=== PATIENT | male | born 1995 | race African-American/Black ===

== ENCOUNTER 2019-06-28 14:05 | Emergency (ER) | payer OTHER ==
--- NOTE | 2019-06-28 14:43 | ED ---
Laceration/Wound HPI - HPI Summary HPI Summary: 24-year-old male presents to the emergency department for staple removal status post laceration while wrestling 8 days ago. Patient has no complaints at this time including fever, chest pain, abdominal pain, rash, pain with urination. Patient reports 0 out of 10 pain at the site of his laceration. There are no signs of secondary infection of the wound is healing properly. Patient has been doing daily wound cleaning. - History of Current Complaint Stated Complaint: NEEDS KASANDRA REMOVED PER PT Hx Obtained From: Patient Mechanism of Injury: Sharp/Blunt Trauma Onset/Duration: Lasting Days Pain Intensity: 0 Pain Scale Used: 0-10 Numeric - Allergy/Home Medications Allergies/Adverse Reactions: Allergies Allergy/AdvReac Type Severity Reaction Status Date / Time No Known Allergies Allergy Verified 06/28/19 14:12 PMH/Surg Hx/FS Hx/Imm Hx Cardiovascular History: Denies: Hx Pacemaker/ICD Sensory History: Denies: Hx Hearing Aid Psychiatric History: Denies: Hx Panic Disorder Infectious Disease History: No Infectious Disease History: Denies: Traveled Outside the [place] in Last 30 Days - Social History Alcohol Use: None Substance Use Type: Reports: None Smoking Status (MU): Never Smoked Tobacco Review of Systems Constitutional: Negative Eyes: Negative ENT: Negative Cardiovascular: Negative Respiratory: Negative Gastrointestinal: Negative Genitourinary: Negative Musculoskeletal: Negative Skin: Negative Neurological: Negative Psychological: Normal All Other Systems Reviewed And Are Negative: Yes Physical Exam - Summary Physical Exam Summary: Inspection reveals a well-healing 6 cm laceration to the posterior scalp. No evidence of secondary infection such as drainage or erythema. There are [address] at the superior margin of the wound and the other 4 kasandra which were originally placed have been removed prior to arrival. Triage Information Reviewed: Yes Vital Signs On Initial Exam: Initial Vitals Temp Pulse Resp BP Pulse Ox 98.6 F 65 16 138/83 100 06/28/19 14:07 06/28/19 14:07 06/28/19 14:07 06/28/19 14:07 06/28/19 14:07 Vital Signs Reviewed: Yes Appearance: Positive: Well-Appearing, No Pain Distress, Well-Nourished Skin: Positive: Warm, Skin Color Reflects Adequate Perfusion Eyes: Positive: EOMI, STACI ENT: Positive: Hearing grossly normal Respiratory/Lung Sounds: Positive: Clear to Auscultation, Breath Sounds Present Cardiovascular: Positive: RRR, S1, S2 Musculoskeletal: Positive: Strength/ROM Intact Neurological: Positive: Sensory/Motor Intact, Alert, Oriented to Person Place, Time, Normal Gait, Speech Normal Psychiatric: Positive: Normal AVPU Assessment: Alert Procedures - Sedation Patient Received Moderate/Deep Sedation with Procedure: No Diagnostics - Vital Signs Vital Signs Temp Pulse Resp BP Pulse Ox 06/28/19 14:07 98.6 F 65 16 138/83 100 - Laboratory Lab Statement: Any lab studies that have been ordered have been reviewed, and results considered in the medical decision making process. Laceration Repair Course/Dx - Course Course Of Treatment: Patient was evaluated in the emergency department today for staple removal status post laceration 8 days ago. 4 the previous 6 kasandra removed prior to arrival. The remaining 2 kasandra were removed with significant difficulty as they were misshapen due to improper removal techniques prior to arrival. The kasandra were removed and the patient's wound remained well approximated. Patient is to continue daily wound care. - Differential Dx Differental Diagnoses: Laceration - Clinical Impression Provider Diagnoses: Removal of staple Discharge ED - Sign-Out/Discharge Documenting (check all that apply): Patient Departure - Discharge Plan Condition: Stable Disposition: HOME Patient Education Materials: Acute Wound Care (ED) Additional Instructions: You were seen in the emergency department today and had 2 kasandra removed. Please continue your daily wound care and follow-up with your primary care provider if you develop any new or worsening symptoms. Please return to the emergency department if you develop fever or purulent drainage from your wound. - Billing Disposition and Condition Condition: STABLE Disposition: Home
[2019-06-28 15:38] VITALS: BP 0/0
== END 2019-06-28 15:35 | disposition home or self-care (01) ==
LOC: ED 14:05
DX: S01.01XD Laceration without foreign body of scalp, subsequent encounter (principal); Y93.72 Activity, wrestling
CPT/HCPCS: 99282